=== PATIENT | male | born 1970 | race Caucasian/White ===

== ENCOUNTER → 2018-11-05 | Day surgery (SDC) | payer OTHER ==
[2018-11-03 13:34] LABS: BASOPHILS % 0.4 % (0.0-1.0); EOSINOPHILS # (AUTO) 0.2 (0.0-0.4); HEMATOCRIT 47.7 % (38.2-49.6); HEMOGLOBIN 15.9 g/dL (14.0-18.0); LYMPHOCYTES # (AUTO) 2.4 (1.0-3.2); LYMPHOCYTES % 29.8 % (18.0-39.1); MEAN CORPUSCULAR HEMOGLOBIN 29.1 pg (28-32); MEAN CORPUSCULAR HGB CONC 33.3 g/dL (31-35); MEAN CORPUSCULAR VOLUME 87.4 fL (81-99); MONOCYTES % 12.6 % (4.4-11.3); NEUTROPHILS # (AUTO) 4.4 (2.1-6.9); NEUTROPHILS % 54.6 % (38.7-80.0); PLATELET COUNT 247 x10e3/uL (140-360); RED BLOOD COUNT 5.46 x10e6/uL (4.3-5.7); RED CELL DISTRIBUTION WIDTH 13.1 % (11.7-14.4)
[~2018-11-05] MED LIST: ACETAMINOPHEN 1000 MG/100 ML 100 ML IV ONE; ACETAMINOPHEN 1000 MG/100 ML IV ONE; ACETAMINOPHEN/CODEINE 300MG - 30MG TAB ONE; BACITRACIN 50,000 UNIT VIAL ONE; BUPIVACAINE HCL 0.5% INJ 30 ML VIAL INJ ONE; CEFAZOLIN SOD 2 GM/D5W 50ML 50 ML IV ONE; DEXAMETHASONE SOD PHOS INJ 4 MG/ML VIAL ONE; EPHEDRINE SULFATE INJ 50 MG/10 ML SYR ONE; FENOFIBRATE PO; FENTANYL CITRATE/PF 100MCG/2 ML INJ ONE; GLYCOPYRROLATE INJ 1MG/ 5 ML SYR ONE; KENALOG60 GM TP; KETOROLAC TROMETHAMINE 30 MG/ML VIAL ONE; LEVAQUIN500 MG PO; LIDOCAINE HCL 2% LOCAL INJ 5 ML SDV VIAL INJ ONE; LORTAB 7.51 EA PO; METRONIDAZOLE250 MG PO; MIDAZOLAM HCL 2 MG/2 ML VIAL ONE; ONDANSETRON HCL INJ 2MG/ML 2ML 2 MG/ML VIAL ONE; PROPOFOL IV EMULSION 10 MG/ML 20 ML VIAL ONE; SEVOFLURANE INHAL SOLN 250 ML PEN BTL ONE; SURFAK240 M2 PO; TESTOSTERONE; Z.0.KEFLEX500 MG PO
--- OUTSIDE RECORDS SUMMARY | 2018-11-05 10:19 | XMS REPORT ---
Author Author [facility] Address Unknown Phone Unavailable Care Team Providers Care [employer] Name Role Phone Unavailable Unavailable Payers Payer Name Policy Type Policy Number Effective Date Expiration Date Problems This patient has no known problems. Allergies, Adverse Reactions, Alerts This patient has no known allergies or adverse reactions. Medications This patient has no known medications.
[2018-11-05 15:20] VITALS: BP 139/96
--- NOTE | 2018-11-05 21:11 | Operative Report ---
DATE OF PROCEDURE: 11/05/2018 SURGEON: Pedro Leblanc MD PREOPERATIVE DIAGNOSES: 1. Umbilical hernia. 2. Right inguinal hernia. POSTOPERATIVE DIAGNOSES: 1. Umbilical hernia. 2. Right inguinal hernia. PROCEDURES: 1. Repair of right inguinal hernia. 2. Repair of right inguinal hernia with mesh. TIRE SORTER: None. ANESTHESIA: General. INDICATIONS AND FINDINGS: The patient is a 48-year-old male who presents with complaints of a bulge in the umbilicus and also in the right groin. Surgery, the patient was found to have an umbilical hernia containing some omentum with a fascial defect that was about 1.5 cm and the patient had an indirect right inguinal hernia. TECHNIQUE: After adequate general anesthesia, patient in supine position, the abdomen and right groin area were prepped and draped in a sterile fashion with ChloraPrep solution and Betadine solution. Starting the umbilicus, transverse incision was made inferior to the umbilicus, carried down through the subcutaneous tissue. The umbilicus was dissected free of the herniated mass and dissected free from surrounding tissues down to the fascia and freed from the fascia hernia defect. Hernia contains some omentum and preperitoneal fat. The hernia was closed directly transversely with a running suture of 0 prolene. The size of the defect was about 1.5 cm. Hemostasis was seen to be adequate. The wound was inspected, infiltrated with 0.5% Marcaine, inspected for hemostasis which was seen to be adequate. The umbilicus was then sutured to the fascia using 3-0 Vicryl. The wound was closed with 3-0 Vicryl subcutaneous tissue and 4-0 Vicryl subcuticular to the skin. Dermabond was applied to the wound. A transverse incision was then made in the right inguinal area canal through subcutaneous tissue and Phong's fascia to the external oblique fascia was seen. This was opened in direction of its fibers through the external ring. The spermatic cord was dissected free from the floor of the inguinal canal. fibers were opened. There was an indirect hernia with hernia sac and some prolapsed preperitoneal fat. This was dissected free from the spermatic cord up to the internal ring, then reduced through the internal ring. There was no evidence of a direct hernia. A large Prolene mesh hernia system, which had been soaked in antibiotic solution was placed through the internal ring with the underlay patch opened up in the preperitoneal space. The onlay patch was laid over the floor of the inguinal canal. The keyhole opening created to allow exit of the spermatic cord. The onlay patch was sutured to the shelving edge of inguinal ligament laterally and conjoint tendon medially. This was done with interrupted sutures of 0 prolene. Care was taken not to entrap the genitofemoral or iliohypogastric nerve. The ilioinguinal nerve also had been identified and this was preserved. Care was taken not to entrap this. Once the mesh was in place, the spermatic cord and ilioinguinal nerve were returned to their normal positions. The wound was inspected for hemostasis which was seen to be adequate. The wound was then infiltrated with 0.5% Marcaine. The external oblique fascia was then closed with a running suture of 2-0 Vicryl. Care was taken not to entrap the spermatic cord or ilioinguinal nerve. Phong's fascia was closed with running suture of 3-0 Vicryl. Skin was closed with a running subcuticular suture of 4-0 Vicryl. Dermabond was applied to this wound and sterile dressing was applied to each wound. The patient tolerated the procedure well. Estimated blood lossfor entire procedure was 10 mL. There were no complications. All counts were correct and the patient was taken to the recovery room in satisfactory condition. MD CHA Esquivel/JYOTIL /[id number]
== END | disposition home or self-care (01) ==
LOC: OR 10:16
PROVIDERS: ATTEND Surgery
DX: K42.9 Umbilical hernia without obstruction or gangrene (principal); K40.90 Unilateral inguinal hernia, without obstruction or gangrene, not specified as recurrent; G47.33 Obstructive sleep apnea (adult) (pediatric); K21.9 Gastro-esophageal reflux disease without esophagitis; Z01.810 Encounter for preprocedural cardiovascular examination; Z01.812 Encounter for preprocedural laboratory examination; Z87.891 Personal history of nicotine dependence
CPT/HCPCS: 36415; 49505; 49585; 85025; 93005; C1781; J0131; J0690; J1100; J1885; J2001; J2250; J2405; J2704; J3490

== ENCOUNTER → 2019-06-15 | Day surgery (SDC) | payer OTHER ==
[2019-06-08 10:33] LABS: BASOPHILS # (AUTO) 0.1 (0.0-0.1); BASOPHILS % 0.8 % (0.0-1.0); EOSINOPHILS # (AUTO) 0.2 (0.0-0.4); EOSINOPHILS % 1.5 % (0.0-6.0); HEMATOCRIT 50.4 % (38.2-49.6); HEMOGLOBIN 17.2 g/dL (14.0-18.0); LYMPHOCYTES # (AUTO) 2.7 (1.0-3.2); LYMPHOCYTES % 26.8 % (18.0-39.1); MEAN CORPUSCULAR HEMOGLOBIN 29.8 pg (28-32); MEAN CORPUSCULAR HGB CONC 34.1 g/dL (31-35); MEAN CORPUSCULAR VOLUME 87.3 fL (81-99); MONOCYTES % 10.1 % (4.4-11.3); NEUTROPHILS % 59.4 % (38.7-80.0); PLATELET COUNT 254 x10e3/uL (140-360); RED BLOOD COUNT 5.77 x10e6/uL (4.3-5.7); RED CELL DISTRIBUTION WIDTH 12.5 % (11.7-14.4)
[2019-06-08 10:59] LABS: ANION GAP 12.6 mmol/L (8-16); BLOOD UREA NITROGEN 11 mg/dL (7-26); BUN/CREATININE RATIO 10 (6-25); CALCIUM 9.4 mg/dL (8.4-10.2); CARBON DIOXIDE 26 mmol/L (22-29); CHLORIDE 102 mmol/L (98-107); CREATININE, SERUM 1.05 mg/dL (0.72-1.25); EST GLOMERULAR FILTRATION RATE > 60 ML/MIN (60-); GLUCOSE 90 mg/dL (74-118); POTASSIUM 3.6 mmol/L (3.5-5.1); SODIUM 137 mmol/L (136-145)
[~2019-06-15] MED LIST changes: -ACETAMINOPHEN 1000 MG/100 ML IV ONE; -ACETAMINOPHEN/CODEINE 300MG - 30MG TAB ONE; -BACITRACIN 50,000 UNIT VIAL ONE; +BUPIVACAINE 0.25%/EPI 30ML SDV INJ ONE; -BUPIVACAINE HCL 0.5% INJ 30 ML VIAL INJ ONE; -CEFAZOLIN SOD 2 GM/D5W 50ML 50 ML IV ONE; -EPHEDRINE SULFATE INJ 50 MG/10 ML SYR ONE; +HYDROMORPHONE 1MG/1ML INJ ONE; +LIDOCAINE HCL (LTA) 4 ML SOLN ONE; +LIDOCAINE HCL 2% JELLY 5 ML TUBE ONE; +NEOSTIGMINE 5 MG/5ML SYR ONE; +PHENYLEPHRINE HCL 1% 10 MG/ML VIAL ONE; +ROCURONIUM BROMIDE 10 MG/ML 5ML VIAL ONE; +TESTOSTERONE SC
[2019-06-15 11:10] VITALS: BP 135/99
--- NOTE | 2019-06-15 16:50 | Operative Report ---
DATE OF PROCEDURE: 06/15/2019 SURGEON: Fabiano Neil MD PREOPERATIVE DIAGNOSIS: Incarcerated ventral hernia. POSTOPERATIVE DIAGNOSIS: Incarcerated ventral hernia. OPERATION PERFORMED: Repair of incarcerated ventral hernia with mesh. NOTCHED BLADE LOADER: KARLI Campos. ANESTHESIA: General. COMPLICATIONS: None. ESTIMATED BLOOD LOSS: Minimal. DESCRIPTION OF PROCEDURE: With the patient lying in bed in the supine position under good general anesthesia, the abdomen was prepped with Betadine solution and draped in the usual manner. A midline incision was then made in the supraumbilical region, carried down through the subcutaneous tissue and immediately the hernia defect was encountered in the supraumbilical area. The fascia was then dissected all the way around including the umbilicus. The umbilicus was then from the fascia. The patient had a previous repair in the area. There was some Prolene sutures that were removed. There were about 3 or 4 different holes in the area. The largest one had an incarcerated preperitoneal fat, which was from the fascia and resected. All other hernias were similarly dissected and the fascia was freed up. A couple of the defects were then joined together into one defect and we were able to get access into the intraabdominal cavity. All of the adhesions were taken down. Once this was done and everything was freed up, the smaller defects were then closed primarily with 0 Ethibond. A large Ventralex patch was then placed through the larger defects and deployed without any difficulty and the mesh was then anchored to the fascia with interrupted sutures of 0 Ethibond and the midline defect was then closed also with 0 Ethibond anchoring the mesh on the way out. This gave us satisfactory repair without any tension. 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 The family was advised he obviously needs to take care of himself until all of this heals, so that he does not develop a tear above where the repair was done. The whole area was thoroughly irrigated. Perfect hemostasis was ascertained. All layers were infiltrated on the way out with solution of 0.25% Marcaine. Subcutaneous tissue was approximated with 3-0 Vicryl. The umbilicus was then tacked back down to the midline fascia with 3-0 Vicryl and the skin was closed with clips. A dressing was applied. The sponge, lap, and needle count was correct. The patient tolerated the procedure well and returned to the recovery room in stable condition. MD KELLI Hinson/JONAH /[id number]
== END | disposition home or self-care (01) ==
LOC: OR 05:51
PROVIDERS: ATTEND Surgery
DX: K43.6 Other and unspecified ventral hernia with obstruction, without gangrene (principal); G47.33 Obstructive sleep apnea (adult) (pediatric); I10 Essential (primary) hypertension; Z01.810 Encounter for preprocedural cardiovascular examination; Z01.812 Encounter for preprocedural laboratory examination
CPT/HCPCS: 36415; 49561; 49568; 80048; 85025; 93005; C1781; J0131; J1100; J1170; J1885; J2001 ×2; J2250; J2370; J2405; J2704; J3010; J3490

== ENCOUNTER → 2023-11-02 | Day surgery (SDC) | payer BC, OTHER ==
[~2023-11-02] MED LIST changes: -ACETAMINOPHEN 1000 MG/100 ML 100 ML IV ONE; -BUPIVACAINE 0.25%/EPI 30ML SDV INJ ONE; -DEXAMETHASONE SOD PHOS INJ 4 MG/ML VIAL ONE; +DEXMEDETOMIDINE HCL 200 MCG/2 ML VIAL ONE; -FENTANYL CITRATE/PF 100MCG/2 ML INJ ONE; -GLYCOPYRROLATE INJ 1MG/ 5 ML SYR ONE; -HYDROMORPHONE 1MG/1ML INJ ONE; -KETOROLAC TROMETHAMINE 30 MG/ML VIAL ONE; +LACTATED RINGER'S 1,000 ML BAG ONE; +LACTATED RINGER'S 1,000 ML ONE; -LIDOCAINE HCL (LTA) 4 ML SOLN ONE; -LIDOCAINE HCL 2% JELLY 5 ML TUBE ONE; +LOSARTAN POTASS25 MG PO; +METOCLOPRAMIDE HCL 10 MG/2ML VIAL ONE; -NEOSTIGMINE 5 MG/5ML SYR ONE; -ONDANSETRON HCL INJ 2MG/ML 2ML 2 MG/ML VIAL ONE; -PHENYLEPHRINE HCL 1% 10 MG/ML VIAL ONE; +PROPOFOL IV EMULSION 10 MG/ML 50 ML VIAL IV ONE; -ROCURONIUM BROMIDE 10 MG/ML 5ML VIAL ONE; -SEVOFLURANE INHAL SOLN 250 ML PEN BTL ONE; -TESTOSTERONE SC; +TESTOSTERONE TOP
[2023-11-02 12:31] VITALS: TEMP 97.6
[2023-11-02 12:51] VITALS: BP 118/73; PULSE 71; RESP 18; O2SAT 99
== END | disposition home or self-care (01) ==
LOC: OR 10:10
PROVIDERS: ATTEND Internal Medicine Gastroenterology
DX: K29.70 Gastritis, unspecified, without bleeding (principal); K62.1 Rectal polyp; K21.00 Gastro-esophageal reflux disease with esophagitis, without bleeding; K58.9 Irritable bowel syndrome, unspecified; K44.9 Diaphragmatic hernia without obstruction or gangrene; K57.30 Diverticulosis of large intestine without perforation or abscess without bleeding; K64.8 Other hemorrhoids; Z71.3 Dietary counseling and surveillance; G47.33 Obstructive sleep apnea (adult) (pediatric); I10 Essential (primary) hypertension; Z71.89 Other specified counseling; Z79.899 Other long term (current) drug therapy; Z68.37 Body mass index [BMI] 37.0-37.9, adult
CPT/HCPCS: 43239; 45380; C9113; J2001; J2250; J2704 ×2; J2765; J7121; 45378